=== PATIENT | female | born 1990 | race Caucasian/White ===

== ENCOUNTER 2019-04-21 13:59 | Emergency (ER) | payer MEDICAID, SELFPAY ==
[2019-04-21 14:05] VITALS: BP 144/92; PULSE 76; RESP 16; TEMP 36.6; O2SAT 98
--- NOTE | 2019-04-21 15:14 | ED.GENADUL_ITS ---
Discharge Plan Disposition Patient Disposition: HOME Condition: Stable Discharge Details Chief Complaint: RashLesion Clinical Impression: Tick bite of abdominal wall Primary Care Provider: Shannan Berrios ED Provider: Bill Larkin Home Meds and New Rx's Prescriptions: No Action Nexplanon 68 mg Implant SUBDERMAL RF: 0 Discharge Instructions Instructions: Tick Bite (ED) Additional Instructions: Continue to observe the site of bite and feel free to follow-up with your primary care provider for any new or worsening symptoms or reassessment. For any emergent changes you may also return to the emergency department. Referrals: Shannan Berrios [Primary Care Provider] - (As needed for reassessment) Discharge Data Discharge Date/Time-TO BE ENTERED AT DEPARTURE: 04/21/19 15:25 Medical Decision Making Patient presenting to the emergency department chief complaint of tick bite. Patient states that she does not know when she was bit but noticed the tick today. She states that she had not been outside for almost 6 days. Patient denies any other symptoms, arthralgias, fever chills. Physical exam is unremarkable except for erythema consistent with insect bite and more than likely tick to the left lower flank. No tick is present at this time. Given unknown time of attachment an unknown type of tick and patient significant anxiety patient given single dose of doxycycline 200 mg. Return precautions were discussed otherwise patient to follow-up with primary care provider as ne eded for reassessment HPI General Mode of arrival: ambulatory . Date/Time Provider Initiated Documentation: 04/21/19 15:13 . Limitations to Documentation: no limitations . Information obtained by: patient and RN notes reviewed . History of Present Illness 28 year old F presents to the emergency department with the chief complaint of Tick bite, Patient notes no other symptoms.. Patient did receive the following treatments prior to arrival, none Related Data Home Medications Medication Instructions Recorded Confirmed etonogestrel [Nexplanon] SUBDERMAL 04/21/19 Allergies Allergy/AdvReac Type Severity Reaction Status Date / Time No Known Allergies Allergy Unverified 04/21/19 14:09 General Stated Complaint: RashLesion JUMANA: 4 Review of Systems Constitutional Constitutional: Denies body ache(s), Denies fever(s) and Denies headache(s) ENT Ears, Nose, Mouth, and Throat: Denies headache(s) Musculoskeletal Musculoskeletal: Denies myalgias, Denies arthralgias and Denies joint swelling Integumentary/Breasts Skin/Breast: Reports as per HPI, Denies rash and Denies skin pain Neurologic Neurologic: Denies headache(s) and Denies paresthesias PFSH Medical History Asthma has inhaler but doesn't use it often Surgical History section (07/14/10) Mitesh Family History Mother No problems noted. Father No problems noted. Sister Diabetes Social History Smoking/Tobacco Use Status: Current-Occasional Alcohol Intake: never Drug use: Never Do you feel safe in your relationship?: Yes Exam Const General: cooperative, comfortable and no acute distress Orientation: alert, awake and oriented x3 Resp Effort & Inspection: normal respiratory effort and able to speak in complete sentences Skin General skin exam: erythema (L flank Circular area with central bite milagros consistent with tick bite), no fluctuance and no induration Rashes: no rashes Neuro General: alert, awake and oriented x3 Course Vital Signs Vital signs: Vital Signs Temperature 36.6 C 04/21/19 14:05 Pulse 76 04/21/19 14:05 Respiratory Rate 16 04/21/19 14:05 Blood Pressure 144/92 H 04/21/19 14:05 Pulse Oximetry 98 04/21/19 14:05 Temperature 36.6 C 04/21/19 14:05 Temperature Source Temporal Artery Scan 04/21/19 14:05 Pulse 76 04/21/19 14:05 Respiratory Rate 16 04/21/19 14:05 Respiratory Effort 04/21/19 14:11 Blood Pressure 144/92 H 04/21/19 14:05 Pulse Oximetry 98 04/21/19 14:05
[2019-04-21] MEDS: Doxycycline Hyclate 100 MG CAP 200 MG PO (15:18)
== END 2019-04-21 15:25 | disposition home or self-care (01) ==
PROVIDERS: Emergency Provider Nurse Practitioner Family; PCP Nurse Practitioner
DX: S31.154A Open bite of abdominal wall, left lower quadrant without penetration into peritoneal cavity, initial encounter (principal); W57.XXXA Bitten or stung by nonvenomous insect and other nonvenomous arthropods, initial encounter; F41.9 Anxiety disorder, unspecified
CPT/HCPCS: 99283

== ENCOUNTER 2021-10-19 15:41 | Outpatient (REF) | payer MEDICAID, SELFPAY ==
--- NOTE | 2021-10-19 14:55 | PAPFT_PTH ---
PATIENT: Nehemiah Ivory LOC: [facility] U#:[id number] AGE/SX: 31/F ROOM: RE10/19/[address]: April Camejo NP : 1990 BED: DIS: 10/19/2021 SPEC #: [id number] RECD: 10/19/21 17:38 STATUS: GARRICK RESilva #: [id number] NISHANT: 10/19/21 14:[address]: April Camejo NP DEPT: [facility] Cytology RECD BY: Pavithra Smith ENTERED: 10/19/21 17:39 SP TYPE: PAPFT OTHR DR: Shannan Berrios Tissues: 1 - CX/ENDOCX FOR PAP SMEARS Procedures: PAP THIN PREP/[facility] Screening HPV DNA PROBE Comments: [id number]
== END 2021-10-19 15:42 | disposition home or self-care (01) ==
LOC: LBN 15:41
PROVIDERS: PCP Nurse Practitioner Family; Visit Provider Nurse Practitioner Women's Health
DX: Z12.4 Encounter for screening for malignant neoplasm of cervix (principal); R87.610 Atypical squamous cells of undetermined significance on cytologic smear of cervix (ASC-US); Z11.51 Encounter for screening for human papillomavirus (HPV)
CPT/HCPCS: 88142; 87624

== ENCOUNTER 2023-12-07 18:34 | Emergency (ER) | payer MEDICAID, SELFPAY ==
--- NOTE | 2023-12-07 18:45 | DI.RAD_ITS ---
Exam(s) XR ANKLE LT COMPLETE EXAM: XR ANKLE LT COMPLETE CLINICAL HISTORY: L ankle injury, felt pop and pain TECHNIQUE: 2D digital imaging was performed of the left ankle. Three images were obtained. AP, lat eral and oblique views were obtained. COMPARISON: No exams were available for comparison FINDINGS: BONES: No acute fracture is present. No bony destructive lesion is seen. JOINTS:The ankle mortise is normally aligned. SOFT TISSUE: Normal. IMPRESSION: Unremarkable radiographs of the left ankle. DATA REPOSITORY: RADIATION DOSE DELIVERED:
[2023-12-07 18:46] VITALS: BP 160/101; PULSE 59; RESP 14; TEMP 36.6; O2SAT 98
--- NOTE | 2023-12-07 19:15 | ED.GENADUL_ITS ---
Discharge Plan Discharge Details Chief Complaint: Orthopedic Primary Care Provider: ELAN SOTO ED Provider: Mindy Mcnally Home Meds and New Rx's Prescriptions: No Action Nexplanon 68 mg Implant 1 implant SUBDERMAL HPI General Date/Time Provider Initiated Documentation: 12/07/23 18:38 . HPI Narrative: Nehemiah is a 33-year-old female presents to the emergency department today for evaluation of left ankle pain. She reports that she was wearing flip-flops and twisted her ankle with a resultant pop heard/felt. She has pain with weightbearing, is able to minimally flex and point to the ankle. She denies knee pain, foot pain, other injuries. No previous injury to this ankle. She reports pain is all over the ankle, both the medial and lateral aspect. She has not taken any medications for this prior to arrival. Denies regular alcohol use, bleeding disorders. Related Data Home Medications Medication Instructions Recorded Confirmed etonogestrel 68 mg subdermal 1 implant subdermal 04/21/19 10/13/21 implant (Nexplanon) Allergies Allergy/AdvReac Type Severity Reaction Status Date / Time No Known Drug Allergies Allergy Unknown Verified 12/07/23 18:54 black fly bite Allergy Unknown Uncoded 12/07/23 18:54 General Stated Complaint: Orthopedic JUMANA: 4 Review of Systems Narrative: see HPI Exam Const General: cooperative, healthy appearing, comfortable, no acute distress and well developed Nutritional Appearance: average body habitus Resp Effort & Inspection: normal respiratory effort and able to speak in complete sentences Extrem Left lower extremity: normal capillary refill, knee Details: normal to inspection and ankle Details: tenderness, swelling Details: laterally and abnormal ROM (decreased ROM due to discomfort); no abrasions, no lacerations and no ecchymosis Course Vital Signs Vital signs: Vital Signs Temperature 36.6 C 12/07/23 18:46 Pulse 59 L 12/07/23 18:46 Respiratory Rate 14 12/07/23 18:46 Blood Pressure 160/101 H 12/07/23 18:46 Pulse Oximetry 98 12/07/23 18:46 Temperature 36.6 C 12/07/23 18:46 Temperature Source Oral 12/07/23 18:46 Pulse 59 L 12/07/23 18:46 Respiratory Rate 14 12/07/23 18:46 Respiratory Effort Normal 12/07/23 18:50 Blood Pressure 160/101 H 12/07/23 18:46 Blood Pressure Position Sitting 12/07/23 18:46 Pulse Oximetry 98 12/07/23 18:46 Oxygen Delivery Method Room Air 12/07/23 18:46 Oxygen Flow Rate 0 12/07/23 18:46 Pain Level 6 12/07/23 18:46 Medical Decision Making Nehemiah is a 33-year-old female presents to the emergency department today for evaluation of left ankle pain. She reports that she was wearing flip-flops and twisted her ankle with a resultant pop heard/felt. She has pain with weightbearing, is able to minimally flex and point to the ankle. She denies knee pain, foot pain, other injuries. No previous injury to this ankle. She reports pain is all over the ankle, both the medial and lateral aspect. She has not taken any medications for this prior to arrival. Denies regular alcohol use, bleeding disorders. Physical exam remarkable for moderate swelling to the lateral malleolus. No point tenderness or overlying abrasions/skin tears or ecchymosis.. Sensation distally intact. No pain to knee or proximlal tibia/fibula. Pulses intact. I independently interpreted the following tests: Left ankle x-ray, no obvious fractures or dislocations noted. This was confirmed by radiologist interpretation While in the emergency department Tamara received ibuprofen for discomfort. Imaging Data Radiologic Study: Radiologist's impression: PROCEDURE INFORMATION: Exam: XR Left Ankle Exam date and time: 12/07/2023 7:27 PM Age: 33 years old Clinical indication: Injury or trauma; Fall; Blunt trauma; Left; Injury details: L ankle injury, felt pop and pain TECHNIQUE: Imaging protocol: Radiologic exam of the left ankle. Views: 3 or more views. COMPARISON: No relevant prior studies available. FINDINGS: Bones/joints: Osseous alignment is normal. No acute fracture. No significant arthritic change. Soft tissues: Normal. IMPRESSION: Negative left ankle Quality:SDOH Health Related Social Needs: No Data to Display PFSH All Active Problems (Updated 06/29/22 @ 10:09 by Ashley Carrillo RN, RN) Dental caries (Acute) Ganglion cyst of dorsum of right wrist (Acute) Obesity (Chronic) Presence of subdermal contraceptive implant (Acute) Carpal tunnel syndrome, bilateral (Acute) Medical History (Updated 06/29/22 @ 10:09 by Ashley Carrillo RN, RN) Pruritus Marijuana use Varicose veins of both lower extremities Hemorrhoids Asthma has inhaler but doesn't use it often Surgical History section (07/14/10) Mitesh Family History Mother No problems noted. Father No problems noted. 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
[2023-12-07] MEDS: Ibuprofen 600 MG TAB PO (19:18)
[2023-12-07 20:17] VITALS: BP 162/112; RESP 16
--- NOTE | 2023-12-07 20:19 | DI.VRAD_ITS ---
PROCEDURE INFORMATION: Exam: XR Left Ankle Exam date and time: 12/07/2023 7:27 PM Age: 33 years old Clinical indication: Injury or trauma; Fall; Blunt trauma; Left; Injury details: L ankle injury, felt pop and pain TECHNIQUE: Imaging protocol: Radiologic exam of the left ankle. Views: 3 or more views. COMPARISON: No relevant prior studies available. FINDINGS: Bones/joints: Osseous alignment is normal. No acute fracture. No significant arthritic change. Soft tissues: Normal. IMPRESSION: Negative left ankle Dictated and Authenticated by: Migue Spann MD. Ordering:CRISTIN Guillen MD
--- NOTE | 2023-12-07 20:42 | NUR.NOTE ---
Referral faxed to [facility] to f/u in 2 weeks or so for elevated blood pressure.Nursing Note:
[2023-12-07 20:50] VITALS: BP 148/91; PULSE 89; RESP 22; TEMP 37; O2SAT 97
== END 2023-12-07 20:58 | disposition home or self-care (01) ==
PROVIDERS: Emergency Provider Nurse Practitioner Family; PCP Nurse Practitioner Family
DX: S93.402A Sprain of unspecified ligament of left ankle, initial encounter (principal); R03.0 Elevated blood-pressure reading, without diagnosis of hypertension; X50.0XXA Overexertion from strenuous movement or load, initial encounter
CPT/HCPCS: 29515; 99283; 73610